=== PATIENT | male | born 1960 ===

== ENCOUNTER 2018-11-10 19:22 | Emergency (ER) | payer OTHER ==
[~2018-11-10] VITALS: Ht 188 cm; Wt 99.8 kg
[2018-11-10] MEDS ORDERED: ADULT ASPIRIN81 MG (20:03)
[2018-11-10] MEDS ORDERED: PRAVASTATIN SOD20 MG (20:03)
[2018-11-10] MEDS ORDERED: EXFORGE 10-1601 EACH (20:03)
== END 2018-11-10 20:31 | disposition home or self-care (01) ==
LOC: ER 19:22
DX: S93.491A Sprain of other ligament of right ankle, initial encounter (principal); X50.3XXA Overexertion from repetitive movements, initial encounter; Y93.53 Activity, golf; Y92.59 Other trade areas as the place of occurrence of the external cause; Y99.8 Other external cause status